=== PATIENT | female | born 1965 | race Caucasian/White ===

== ENCOUNTER 2023-03-04 01:58 | Emergency (ER) | payer BC, OTHER ==
[2023-03-04 02:07] VITALS: RESP 18; BMI 26.8
[2023-03-04] MEDS ORDERED: FAMOTIDINE 20 MG/50 ML IVPB 20 MG/50 ML MG IVPB ONE ×2 (02:41→03:00)
[2023-03-04] MEDS ORDERED: ONDANSETRON 4 MG/2 ML VIAL IVPUSH ONE (02:41)
[2023-03-04] MEDS ORDERED: LACTATED RINGERS SOLUTION 1,000 ML/1,000 ML INFUS.BAG IV SCH (02:45)
[2023-03-04 03:05] LABS: BASO % 0.4 % (0-2.0); EOS % 0.2 % (0-4.5); HEMATOCRIT 39.3 % (32.4-45.2); HEMOGLOBIN 13.4 GM/dL (10.7-15.3); LYMPH % 14.8 % (8-40); MCH 30.5 pg (25.7-33.7); MCHC 34.2 g/dl (32.0-36.0); MEAN CELL VOLUME 89.3 fl (80-96); MEAN PLT VOLUME 6.8 fl (7.5-11.1); MONO % 5.5 % (3.8-10.2); NEUT % 79.1 % (42.8-82.8); PLATELET COUNT 370 10^3/uL (134-434); RDW 12.5 % (11.6-15.6); WHITE BLOOD COUNT 10.6 K/mm3 (4.0-10.0)
[2023-03-04 03:37] LABS: INR 0.97 (0.83-1.09); PROTHROMBIN TIME (PATIENT) 11.3 SEC (9.7-13.0)
[2023-03-04 03:39] LABS: ACTIVATED PTT 30.1 SECONDS (25.2-36.5)
[2023-03-04 03:41] LABS: POTASSIUM 4.3 mmol/L (3.5-5.1)
[2023-03-04 03:44] LABS: CALCIUM 9.2 mg/dL (8.5-10.1)
[2023-03-04 03:48] LABS: CREATININE 0.7 mg/dL (0.55-1.3)
[2023-03-04 03:49] LABS: BILIRUBIN,TOTAL 0.3 mg/dL (0.2-1); TOT PROT 7.2 g/dl (6.4-8.2)
[2023-03-04] MEDS ORDERED: METOCLOPRAMIDE HCL INJECTION 10 MG/2 ML VIAL ONE (04:59)
[2023-03-04] MEDS ORDERED: METOCLOPRAMIDE HCL INJECTION 10 MG/2 ML VIAL IVPB ONE (05:00)
[2023-03-04] MEDS ORDERED: LIDOCAINE VISCOUS 2% ORAL/TOP 15 ML UNIT-DOSE CUP MM ONE (06:49)
[2023-03-04] MEDS ORDERED: MAG HYDROX/AL HYDROX/SIMETH 30 ML UNIT-DOSE CUP PO ONE (06:49)
[2023-03-04] MEDS ORDERED: MAG HYDROX/AL HYDROX/SIMETH 30 ML UNIT-DOSE CUP ONE (07:17)
[2023-03-04] MEDS ORDERED: LIDOCAINE VISCOUS 2% ORAL/TOP 15 ML UNIT-DOSE CUP ONE (07:17)
[2023-03-04 07:37] VITALS: BP 116/66; PULSE 64; TEMP 98
== END 2023-03-04 07:44 | disposition home or self-care (01) ==
LOC: JER 01:58
PROC: 3E033GC Introduction of Other Therapeutic Substance into Peripheral Vein, Percutaneous Approach (ICD-10-PCS; principal; 2023-03-04)
PROC: 3E033GC Introduction of Other Therapeutic Substance into Peripheral Vein, Percutaneous Approach (ICD-10-PCS; 2023-03-04)
PROC: 3E033GC Introduction of Other Therapeutic Substance into Peripheral Vein, Percutaneous Approach (ICD-10-PCS; 2023-03-04)
DX: R11.2 Nausea with vomiting, unspecified (principal); R10.13 Epigastric pain; K59.00 Constipation, unspecified; R42 Dizziness and giddiness; Z20.822 Contact with and (suspected) exposure to COVID-19
CPT/HCPCS: 0241U-QW; 36415; 71260-TC; 74177-TC; 80053; 83605; 83690; 84484; 85025; 85610; 85730; 93005; 93010; 99285-25; Q9967